=== PATIENT | female | born 1990 | race Two or more races ===

== ENCOUNTER 2017-02-28 13:17 | Emergency (ER) | payer OTHER ==
[~2017-02-28] VITALS: Ht 170.2 cm; Wt 63.5 kg
[2017-02-28 13:24] VITALS: BP 116/78
--- NOTE | 2017-02-28 13:42 | NUR ---
PT SEEN AND EVALUATED BY DR IBARRA. MEDICALLY CLEARED FOR BOOKING. D/C TO PD IN STABLE CONDITION.
== END 2017-02-28 13:45 ==
LOC: ER 13:25
DX: Z02.89 Encounter for other administrative examinations (principal); S60.512A Abrasion of left hand, initial encounter; S60.511A Abrasion of right hand, initial encounter; X78.8XXA Intentional self-harm by other sharp object, initial encounter; Y93.89 Activity, other specified; Y92.89 Other specified places as the place of occurrence of the external cause; Y99.8 Other external cause status
CPT/HCPCS: 99283; A4606; Z7610